=== PATIENT | male | born 1955 | race Caucasian/White ===

== ENCOUNTER 2016-09-23 15:52 | Observation (INO) | payer BC, MEDICAID ==
--- OUTSIDE RECORDS SUMMARY | 2016-09-23 17:51 | XMS REPORT | Continuity of Care Document ---
:1955 Author Organization [facility] ([facility]) Address [address] [place] [address] Phone [phone] Care Team Providers Name Role Phone Urbano Monsalve Primary Care Provider [phone] Source Comments This disclosure is being made pursuant to the Care Everywhere program, applicable federal and state laws, and may not contain all informaitonavailable regarding this patient.[facility] ([facility]) Active Allergies and Adverse Reactions Allergen Noted Date Severity Reactions Comments Theophylline OTHER "blacked out" Current Medications Prescription Sig. Disp. Refills Start Date End Date Status traZODone 100 mg tablet Take 100 mg by mouth Active at bedtime. Indications: Sleep amLODIPine 5 mg tablet Take 5 mg by mouth Active daily. Indications: HYPERTENSION omeprazole 20 mg Take 20 mg by mouth Active extended release 2 times daily. Take capsule one capsule twice daily before meals aspirin 81 mg chewable Take 1 Tab by mouth 30 Tab 3 12/19/2012 Active tablet daily. Indications: chads 1 cyclobenzaprine 10 mg Take 10 mg by mouth Active tablet at bedtime. ALPRAZolam 1 mg tablet Take 1 mg by mouth Active at bedtime as needed. DULoxetine 30 mg XR Take 30 mg by mouth Active capsule 2 times daily. nortriptyline 10 mg Take 20 mg by mouth Active capsule at bedtime. 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 Resolved Problems Problem Noted Date Resolved Date Atrial fibrillation with RVR 12/16/2012 12/19/2012 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 12/19/2012 Paroxysmal atrial fibrillation 12/15/2012 12/19/2012 Social History Tobacco Use Types Packs/Day Years Used Date Former Smoker Last Filed Vital Signs Vital Sign Reading Time Taken Blood Pressure 114/80 12/30/2015 1:01 PM CDT Pulse 84 12/30/2015 1:01 PM CDT Temperature 36.8 C (98.2 F) 12/19/2012 7:33 AM CDT Respiratory Rate 16 12/19/2012 7:33 AM CDT Height 1.803 m (5' 10.98") 12/30/2015 1:01 PM CDT Weight 95.255 kg (210 lb) 12/30/2015 1:01 PM CDT Body Mass Index 29.3 12/30/2015 1:01 PM CDT Oxygen Saturation 96% 12/19/2012 7:33 AM CDT Plan of Care Health Maintenance Due Date Last Done Comments Hepatitis B Vaccine (1 of 3 1955 - Primary Series) Tdap Vaccine 1965 Td Vaccine 1972 Prostate Cancer Screening 2004 Colonoscopy 07/04/2013 07/04/2003 Zoster Vaccine 2014 Influenza Vaccine: Seasonal 01/11/2016 (#1) Lipid Disorder Screening 12/16/2017 12/16/2012, Additional history exists 09/24/2004, 02/13/2004 HCV Screening Completed 12/16/2012 Results from Last 3 Months Not on file
[2016-09-23 18:03] LABS: Hematocrit 51.2 % (42.0-52.0); Hemoglobin 16.9 gm/dL (13.5-18.0); Mean Cell Volume 89.7 fl (78-100); Mean Corpuscular Hemoglobin 29.6 pg (27-31); Mean Platelet Volume 9.5 fl (6.0-9.5); Neutrophil # 3.5 K/mm3 (1.3-6.0); Neutrophil % 64.6 % (42-75.0); Platelet Count 266 K/mm3 (150-450); Red Blood Count 5.71 M/mm3 (4.7-6.0); Red Cell Distribution Width 12.9 % (11.5-14.0); White Blood Count 5.5 K/mm3 (4.0-10.5)
[2016-09-23 18:17] LABS: Albumin * 3.9 gm/dl (3.4-5.0); Anion Gap 14.4 mmol/L (6.8-13.8); BUN/Creatinine Ratio 9.5 (9.0-21.6); Bilirubin, Total 0.4 mg/dL (0.0-1.1); Ca. Corrected For Albumin 8.2 mg/dL (8.4-10.2); Calcium * 8.4 mg/dL (7.9-10.9); Carbon Dioxide 26.6 mmol/L (24-32.6); Total Protein 7.5 gm/dL (6.2-8.2)
[2016-09-23] MEDS ORDERED: INSULIN REGULAR, HUMAN 100 UNITS/ML VIAL IV ONE (18:46)
[2016-09-23] MEDS ORDERED: NORMAL SALINE 1,000 ML IV ONE (18:46)
[2016-09-23 18:54] LABS: Urine Appearance Clear; Urine Bacteria None Seen; Urine Bilirubin Negative (NEGATIVE); Urine Blood Negative /ul (NEGATIVE); Urine Color Yellow; Urine Ketone Negative (NEGATIVE); Urine Nitrite Negative (NEGATIVE); Urine Protein Negative (NEGATIVE); Urine RBC None Seen /hpf (0-5); Urine Specific Gravity <=1.005 SP.GR. (1.005-1.030); Urine Urobilinogen Normal (NORMAL); Urine WBC None Seen /hpf (0-5); Urine pH 5.5 pH (5.0-7.0)
[2016-09-23] MEDS ORDERED: INSULIN REGULAR, HUMAN 100 UNITS/ML VIAL ONE (18:54)
--- NOTE | 2016-09-23 20:40 | ERNOTE ---
Dizziness ER Record Date of Service: 09/23/16 Presenting Symptoms: dizziness Time Seen by Provider: 09/23/16 17:37 Source: patient, RN notes reviewed, old records Exam Limitations: no limitations Immunizations: IMMUNIZATION HX Immunizations Up to Date Yes History of Influenza Vaccine Yes Hx Pneumococcal Vaccination No Allergies/Adverse Reactions: Allergies Allergy/AdvReac Type Severity Reaction Status Date / Time theophylline anhydrous Allergy Severe Verified 12/17/14 05:55 [From Daniel-Dur] atorvastatin calcium Allergy Verified 01/06/16 10:53 [From Lipitor] Home Medications: HOME MEDICATIONS Acetaminophen [Tylenol] 650 mg PO Q4HWA 01/07/13 [Last Taken Unknown] Omeprazole 20 mg PO BID 01/07/13 [Last Taken Unknown] Trazodone HCl 100 mg PO HS 01/07/13 [Last Taken Unknown] amLODIPine BESYLATE [Norvasc (Amlodipine)] 5 mg PO DAILY 01/07/13 [Last Taken Unknown] Amitriptyline HCl 07/11/14 [Last Taken Unknown] Naproxen [Naprosyn] 500 mg PO BID #20 tablet 12/17/14 [Last Taken Unknown] - History of Present Illness Narrative: 61 y/o male to the ED from home by private vehicle for dizziness that began approximately 6 months ago. This has been gradually worsening to the point where he felt he should be evaluated today. The dizziness is intermittent and seems to be brought on by exertion. He reports that he lost his job last fall and his insurance coverage. He stopped seeing his PCP due to this, but reports that he has been able to continue his routine medications. Timing and Duration: gradual onset, intermittent Noted on awakening:: No Associated Symptoms: Present: headache, sweating, light headedness. Absent: hearing loss, ringing/roaring in ear, ear pain, nausea, vomiting, weakness, numbness, sense of confusion Sense of movement: Present: vague Decreased ability to stand/walk:: Present: walks w/o assistance Usually:: Present: walks w/o assistance Prior Treament: Denies: recently seen Review of Systems - Review of Systems Constitutional: Present: fatigue, malaise. Absent: recent illness, fever, chills, weight loss EYE: Present: no symptoms reported ENT: Present: no symptoms reported Respiratory: Absent: shortness of breath, cough, wheezing Cardiology: Absent: chest pain, palpitations, syncope, edema Gastrointestinal/Abdominal: Absent: nausea, vomiting, abdominal pain, eating less, drinking less Genitourinary: Present: frequency. Absent: dysuria, hematuria Musculoskeletal: Absent: back pain, neck pain Skin: Absent: rash, lesions Neurological: Present: headache, dizziness/light-headedness. Absent: weakness, numbness Endocrine: Present: increased thirst, increased urine. 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 Patient History - Cancer: No Hx of Cancer Patient History - Surgical Procedures: Hernia Repair, Orthopedic Patient History - Other: None - Social History Living Situations: other Abuse History: No History of abuse Psych History: No pertinent hx Smoking Status: Former smoker Alcohol Use: occasionally Drug Use: none - Immunizations Immunizations Up to Date: Yes Hx Pneumococcal Vaccination: No History of Influenza Vaccine: Yes Physical Exam - Physical Exam General Appearance: Present: wd/wn, alert, other - appears to not feel well Eye Exam: Normal inspection: bilateral, PERRL: bilateral Ears, Nose, Throat: Present: normal ENT inspection Neck: Present: normal inspection, nontender, supple, full range of motion Respiratory: Present: no respiratory distress, normal breath sounds, no accessory muscle use, lungs clear Cardiovascular/Chest: Present: regular rate, rhythm, no murmur, normal peripheral pulses Extremity Exam: Present: normal inspection, no edema Neurological Exam: Present: alert, oriented, no motor/sensory deficits, other - flat affect, depressed appearing. Absent: normal mood/affect Skin Exam: Present: normal color, warm/dry ED Progress - Results and Orders Patient's Lab Results:: I have reviewed the patient's lab results. - Vital Signs Patient's Vital Signs:: I have reviewed the patient's vital signs. Vital Signs: Vital Signs 09/23/16 09/23/16 09/23/16 16:07 18:10 18:28 Temperature 36.7 C Pulse Rate 92 89 100 Respiratory 16 Rate Blood Pressure 147/102 O2 Sat by Pulse 97 Oximetry 09/23/16 09/23/16 18:49 19:44 Temperature Pulse Rate 88 82 Respiratory 14 14 Rate Blood Pressure 157/107 162/99 O2 Sat by Pulse 92 95 Oximetry - EKG EKG: NSR, RBBB EKG read: Reviewed by me - Progress/Reassessment Chief Complaint: Dizziness Progress:: Unchanged Progress Note-Subjective: 09/23/16 20:24 Blood glucose 801 on CMP. Rechecked by nurse - 494. Regular insulin 10 units given IV push - blood glucose 450 1 hour later. Currently 411. Negative serum ketones. Attempted to contact hospitalist for admission - informed by engineering secretary that she says she will call me back. 09/23/16 20:55 Again contacted hospitalist. Discussed admission. She is reviewing the patient' s chart. 09/23/16 21:19 Hospitalist agrees to observation admit for new onset diabetes Departure Clinical Impression: Diabetes mellitus, new onset, Dizziness - Departure Disposition: [facility] Condition: Stable
--- OUTSIDE RECORDS SUMMARY | 2016-09-23 21:28 | XMS REPORT | Continuity of Care Document ---
:1955 Author Organization [facility] ([facility]) Address [address] [place] [address] Phone [phone] Care Team Providers Name Role Phone Urbano Monsalve Primary Care Provider [phone] Source Comments This disclosure is being made pursuant to the Care Everywhere program, applicable federal and state laws, and may not contain all informaitonavailable regarding this patient.[facility] ([facility]) Active Allergies and Adverse Reactions Allergen Noted [...] Date Atrial fibrillation with RVR 12/16/2012 12/19/2012 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
[2016-09-23] MEDS: NORMAL SALINE 1,000 ML IV PRN (23:00)
--- NOTE | 2016-09-23 23:03 | HP ---
Chief Complaint - Chief Complaint Date of Service: 09/23/16 Time of Service: 22:53 Chief Complaint: Dizziness, polyuria, polydipsia History of Present Illness: 61 years old male adm to the hospital with reports of headache, dizziness, polydipsia and polyuria x 6 months. pt stated he lost his job and was without insurance so he haven't been seeing his PCP on a regular basis. Today he was feeling fatigue, dizziness and headache which felt the worst since he started having s/s. He was concern and came to the ER. In ER blood glucose 801, 1L normal saline bolus and 10 unit Humulin R given , serum and urine negative for ketones, K+ 5.0, NA= 128. Bun/ Cre 14/.48 is at baseline, last adm 09/25--->.. Continue with IVF hydration. Plan of care discussed with pt he verbalized understanding and agree. - Patient's Past Medical History Patient History - Medical: Arthritis, Depression, GERD, Other - RLS Patient History - Cardiac/Respiratory: Arrhythmias - cardio ablation 2012 , truong parkinson white syndrome, Hypertension, Hyperlipidemia, Other Patient History - Cancer: No Hx of Cancer Patient History - Surgical Procedures: Hernia Repair, Orthopedic - Bilateral rotator cuff repair x2 Patient History - Other: None - Family History Mother Family History - Medical: Family History - Cardiac/Respiratory: Deep Vein Thrombosis Family History - Cancer: Cervical Father Family History - Medical: Family History - Cardiac/Respiratory: Deep Vein Thrombosis - Social History Living Situations: other Abuse History: No History of abuse Psych History: No pertinent hx Smoking Status: Former smoker Have you smoked in the past 12 months: No Alcohol Use: occasionally Drug Use: none - Immunizations Immunizations Up to Date: Yes Hx Pneumococcal Vaccination: No History of Influenza Vaccine: Yes Review Of Systems (GEN) - Review of Systems Generalized/Overall Review: Present: No Symptoms Reported EENTM: Present: No Symptoms Reported Respiratory: Present: No Symptoms Reported Cardiac: Present: No Symptoms Reported Abdominal: Present: No Symptoms Reported Genitourinary: Present: No Symptoms Reported Musculoskeletal: Present: No Symptoms Reported Neurological: Present: No Symptoms Reported Skin: Present: No Symptoms Reported Endocrine: Present: Increased Hunger, Increased Thirst Immunizations: IMMUNIZATION HX Immunizations Up to Date Yes History of Influenza Vaccine Yes Hx Pneumococcal Vaccination No Allergies/Adverse Reactions: Allergies Allergy/AdvReac Type Severity Reaction Status Date / Time theophylline anhydrous Allergy Severe Verified 12/17/14 05:55 [From Daniel-Dur] atorvastatin calcium Allergy Verified 01/06/16 10:53 [From Lipitor] Home Medications: HOME MEDICATIONS Omeprazole 20 mg PO BID 01/07/13 [Last Taken Unknown] Trazodone HCl 100 mg PO HS 01/07/13 [Last Taken Unknown] amLODIPine BESYLATE [Norvasc (Amlodipine)] 5 mg PO DAILY 01/07/13 [Last Taken Unknown] ALPRAZolam [Xanax] 1 mg PO HS 09/23/16 [Last Taken Unknown] Calcium Carb/Mag Ox/Zinc Sulf [Pbkknsu-Zpwkqqygf-Alxg Tablet] 1 each PO DAILY [Last Taken Unknown] Cholecalciferol (Vitamin D3) [Vitamin D3] 1,000 unit PO DAILY 09/23/16 [Last Taken Unknown] Cyclobenzaprine HCl 10 mg PO HS 09/23/16 [Last Taken Unknown] DULoxetine HCL [Cymbalta] 30 mg PO BID 09/23/16 [Last Taken Unknown] Exam - Exam Vital Signs: Vital Signs - Last Taken Temp 36.4 C L 09/23/16 21:43 Pulse 88 09/23/16 21:43 Resp 18 09/23/16 21:43 BP 157/102 09/23/16 21:43 Pulse Ox 98 09/23/16 21:43 Constitutional: Present: Alert, Oriented x3, Cooperative, Well developed, No distress, Young, Looks Older than stated age ENT Exam: Present: moist mucous membranes Eye Exam: bilateral eye: normal inspection Neck: Present: non-tender, full range of motion Back Exam: Present: normal inspection Respiratory: Present: chest non-tender, lungs clear, normal breath sounds, no respiratory distress, no accessory muscle use Cardiovascular/Chest: Present: normal peripheral pulses, regular rate, rhythm, no chest tenderness, no edema Peripheral Pulses: dorsalis-pedis (R): 2+, dorsalis-pedis (L): 2+ Abdomen: Present: Normal bowel sounds, soft, nontender, nondistended, no rebound tenderness Extremity: Present: normal range of motion Skin Exam: Present: warm/dry Lymphatic: Present: no adenopathy Neurologic: Present: oriented x 3 Appearance: Present: appropriate appearance Eye contact: Present: cooperative, good eye contact Thoughts: Present: normal thought pattern Diagnostic Studies: Laboratory Results WBC 5.5 K/mm3 (4.0-10.5) 09/23/16 17:55 RBC 5.71 M/mm3 (4.7-6.0) 09/23/16 17:55 Hgb 16.9 gm/dL (13.5-18.0) 09/23/16 17:55 Hct 51.2 % (42.0-52.0) 09/23/16 17:55 MCV 89.7 fl (78-100) 09/23/16 17:55 MCH 29.6 pg (27-31) 09/23/16 17:55 MCHC 33.0 g/dl (32-36) 09/23/16 17:55 RDW 12.9 % (11.5-14.0) 09/23/16 17:55 Plt Count 266 K/mm3 (150-450) 09/23/16 17:55 MPV 9.5 fl (6.0-9.5) 09/23/16 17:55 Immature Gran % (Auto) 0.70 % (0.001-0.429) H 09/23/16 17:55 Immature Gran # (Auto) 0.04 K/mm3 (0.000-0.0310) H 09/23/16 17:55 Neutrophils % 64.6 % (42-75.0) 09/23/16 17:55 Lymphocytes % 26.1 % (20-51) 09/23/16 17:55 Monocytes % 5.3 % (0.0-9) 09/23/16 17:55 Eosinophils % 2.4 % (0.0-3.0) 09/23/16 17:55 Basophils % 0.9 % (0.0-1.0) 09/23/16 17:55 Nucleated RBC % 0.0 k/mm3 (0-1) 09/23/16 17:55 Neutrophils # 3.5 K/mm3 (1.3-6.0) 09/23/16 17:55 Lymphocytes # 1.4 k/mm3 (1.5-3.5) L 09/23/16 17:55 Monocytes # 0.3 k/mm3 (0.0-1.0) 09/23/16 17:55 Eosinophils # 0.1 k/mm3 (0.0-0.7) 09/23/16 17:55 Absolute Basophils 0.1 k/mm3 (0.0-0.1) 09/23/16 17:55 Sodium 128 mmol/L (132-142) L 09/23/16 17:55 Plasma Sodium 139 mmol/L (130-142) 09/23/16 17:55 Potassium 5.0 mmol/L (3.4-4.6) H 09/23/16 17:55 Chloride 92 mmol/L (97-106) L 09/23/16 17:55 Carbon Dioxide 26.6 mmol/L (24-32.6) 09/23/16 17:55 Anion Gap 14.4 mmol/L (6.8-13.8) H 09/23/16 17:55 BUN 14 mg/dL (6-23) 09/23/16 17:55 Creatinine 1.48 mg/dL (0.4-1.4) H D 09/23/16 17:55 Est GFR (Non-Af Amer) 51 mL/min (60-130) L D 09/23/16 17:55 BUN/Creatinine Ratio 9.5 (9.0-21.6) 09/23/16 17:55 Random Glucose 801 mg/dL (70-110) H* 09/23/16 17:55 Calcium 8.4 mg/dL (7.9-10.9) 09/23/16 17:55 Calcium Adj for Albumin 8.2 mg/dL (8.4-10.2) L 09/23/16 17:55 Total Bilirubin 0.4 mg/dL (0.0-1.1) 09/23/16 17:55 AST 14 U/L (0-48) 09/23/16 17:55 ALT 36 U/L (19-67) 09/23/16 17:55 Alkaline Phosphatase 138 U/L (50-170) 09/23/16 17:55 Total Protein 7.5 gm/dL (6.2-8.2) 09/23/16 17:55 Albumin 3.9 gm/dl (3.4-5.0) 09/23/16 17:55 Urine Color Yellow 09/23/16 18:45 Urine Appearance Clear 09/23/16 18:45 Urine pH 5.5 pH (5.0-7.0) 09/23/16 18:45 Ur Specific Foley <=1.005 SP.GR. (1.005-1.030) 09/23/16 18:45 Urine Protein Negative mg/dL (NEGATIVE) 09/23/16 18:45 Urine Glucose (UA) >=1000 mg/dL (NEGATIVE) H 09/23/16 18:45 Urine Ketones Negative mg/dL (NEGATIVE) 09/23/16 18:45 Urine Blood Negative /ul (NEGATIVE) 09/23/16 18:45 Urine Nitrate Negative (NEGATIVE) 09/23/16 18:45 Urine Bilirubin Negative mg/dl (NEGATIVE) 09/23/16 18:45 Urine Urobilinogen Normal EU/dl (NORMAL) 09/23/16 18:45 Ur Leukocyte Esterase Negative /ul (NEGATIVE) 09/23/16 18:45 Urine RBC None seen /hpf (0-5) 09/23/16 18:45 Urine WBC None seen /hpf (0-5) 09/23/16 18:45 Ur Epithelial Cells None seen /hpf (0-5) 09/23/16 18:45 Urine Bacteria None seen (NONE) 09/23/16 18:45 Urine Culture Comments No culture indicated 09/23/16 18:45 Serum Ketones Negative (NEGATIVE) 09/23/16 17:55 Assessment/Plan - Narrative Narrative: New onset diabetes- pt reports of polydipsia, polyuria and polyphagia In ER Blood glucose 801mg/dl K+ 5.0, Na+ 128 1L normal saline bolus and 10 unit Humulin R given in ER -----> repeated BG 411mg/dl Accu-check AC+HS and moderate dose SSI Consistent carb diet Continue with IVF hydration Urine and serum negative for ketones Urine glucose >1000 Diabetic education and life style modification Mag, phos,Lipid panel, Urine microalbumine and A1C pending Anticipate D5W 0.45NS when blood glucose goal 200-250 Uncontrolled hypertension On adm BP 157/102 If pt missed todays medication give dose and monitor vital signs Resume home dose of medications Hydralazine 10 mg Q8hr for SBP>160 or DBP >80 Give additional dose Norvasc 5mg x1 now and start Lisinopril 5mg oral daily Anticipate D5W 0.45NS when blood glucose goal 200-250 and if pt unable to tolerate oral Code status: Full GI ppx: VTE ppx: Anticipate discharge home 1-3 days and follow up with PCP Time 35 minutes - Assessment/Plan (1) Diabetes mellitus, new onset Problem: Acute (2) Hypertension Problem: Chronic Qualifiers: Hypertension type: essential hypertension Qualified Code(s): I10 - Essential (primary) hypertension (3) Dizziness Problem: Acute
[2016-09-23 23:10] LABS: Urine Creatinine 15 mg/dL (60-200)
[2016-09-23 23:13] LABS: Microalbumin/Creatinine Ratio 7 mcg/mgCR (0-30)
[2016-09-23 23:27] LABS: Anion Gap 12.8 mmol/L (6.8-13.8); BUN/Creatinine Ratio 12.4 (9.0-21.6); Calcium * 8.5 mg/dL (7.9-10.9); Carbon Dioxide 27.2 mmol/L (24-32.6); Estimated Creat Clear 72.2; Phosphorus 3.6 mg/dL (2.2-4.2)
[2016-09-23] MEDS ORDERED: amLODIPine BESYLATE 5 MG TABLET PO ONE (23:55)
[2016-09-23] MEDS ORDERED: hydrALAZINE HCL 20 MG/ML VIAL IV PRN (23:56)
[2016-09-24] MEDS ORDERED: LISINOPRIL 5 MG TABLET PO SCH ×2 (00:30→09:00)
[2016-09-24 05:15] LABS: Hemoglobin A1C 9.5 % (4.00-6.0)
[2016-09-24 05:45] LABS: Albumin * 3.2 gm/dl (3.4-5.0); Anion Gap 12.4 mmol/L (6.8-13.8); BUN/Creatinine Ratio 14.9 (9.0-21.6); Bilirubin, Total 0.7 mg/dL (0.0-1.1); Ca. Corrected For Albumin 8.2 mg/dL (8.4-10.2); Calcium * 7.9 mg/dL (7.9-10.9); Carbon Dioxide 26.4 mmol/L (24-32.6); Chol/HDL Risk Ratio 7.2 mg/dL (3.3-5.0); Potassium 3.8 mmol/L (3.4-4.6); Total Protein 6.3 gm/dL (6.2-8.2)
--- NOTE | 2016-09-24 06:36 | PN ---
Subjective - Date and Time Seen Date: 09/24/16 Time: 06:33 Subjective Narrative: Patient seen today in bed BP improved overnight he denies headache, dizziness, nausea or vomiting. Pt stated he will seek out a PCP and anticipate discharge home later today. Objective - Review of Systems Generalized/Overall Review: Reports: No Symptoms Reported EENTM: Reports: No Symptoms Reported Respiratory: Reports: No Symptoms Reported Cardiac: Reports: No Symptoms Reported Abdominal: Reports: No Symptoms Reported Genitourinary Symptoms: Reports: No Symptoms Reported Musculoskeletal Complaints: Reports: No Symptoms Reported Neurological: Reports: No Symptoms Reported Skin: Reports: No Symptoms Reported - Vitals Vitals: Last Vital Signs Temp 36.2 C L 09/24/16 02:29 Pulse 81 09/24/16 02:29 Resp 18 09/24/16 02:29 BP 140/80 09/24/16 02:29 Pulse Ox 93 09/24/16 02:29 - Abnormal Lab Findings Abnormal Lab Findings: Abnormal Lab Results 09/23/16 09/24/16 09/24/16 Range/Units 23:11 04:58 04:58 Random Glucose 471 H D 297 H D (70-110) mg/dL Hemoglobin A1c 9.5 H (4.00-6.0) % Calcium Adj for Albumin 8.2 L (8.4-10.2) mg/dL Albumin 3.2 L (3.4-5.0) gm/dl Triglycerides 213 H (30-200) mg/dL Cholesterol 204 H (0-200) mg/dL LDL Cholesterol 133 H (70-130) mg/dL VLDL Cholesterol 43 H (5-40) mg/dL HDL Cholesterol 28 L (40-60) mg/dL Cholesterol/HDL Ratio 7.2 H (3.3-5.0) mg/dL - Exam Constitutional: Present: Alert, Oriented x3, Cooperative, Well developed, No distress ENT Exam: Present: moist mucous membranes Neck: Present: full range of motion Breasts: Present: Exam deferred Respiratory: Present: chest non-tender, lungs clear, normal breath sounds, no respiratory distress, no accessory muscle use Cardiovascular/Chest: Present: normal peripheral pulses, regular rate, rhythm, no chest tenderness, no edema, no gallop Abdomen: Present: Normal bowel sounds, soft, nontender, nondistended, no rebound tenderness /Rectal: Present: Exam deferred Extremity: Present: normal range of motion, non-tender, normal inspection, no pedal edema, no calf tenderness Skin Exam: Present: normal color, warm/dry, no cyanosis Neurologic: Present: oriented x 3 Appearance: Present: appropriate appearance Eye contact: Present: cooperative Thoughts: Present: normal thought pattern Assessment/Plan Plan Narrative: Hypertensive- gradually improved Overnight BP elevated additional dose Norvasc given and improved Continue with home dose of medications Monitor vital signs Q shift and PRN New onset diabetes- pt reports of polydipsia, polyuria and polyphagia- improving In ER Blood glucose 801mg/dl K+ 5.0, Na+ 128- improved with hydration K+ 3.8, Na+ 137 10 unit Humulin R given in ER -----> repeated BG 411mg/dl----> 230mg/dl Accu-check AC+HS and moderate dose SSI Consistent carb diet Continue with IVF hydration Urine and serum negative for ketones Urine glucose >1000 Diabetic education and life style modification Lipid panel, mag, phos- noted Urine microalbumine noted A1C 9.5, anticipate discharge home with metformin Renal insufficiency -likely due to decreased oral intake- improved On adm Bun/Cre---> 14/1.48---->14/0.94 Continue with gently hydration and encourage oral intake. Code status: Full GI ppx: VTE ppx: Anticipate discharge home 0-1 day and follow up with PCP Time 20 minutes - Problems/Diagnosis (1) Diabetes mellitus, new onset Problem: Acute (2) Hypertension Problem: Chronic Qualifiers: Hypertension type: essential hypertension Qualified Code(s): I10 - Essential (primary) hypertension (3) Dizziness Problem: Resolved
[2016-09-24 06:52] VITALS: BP 148/92
[2016-09-24] MEDS ORDERED: PANTOPRAZOLE SODIUM 20 MG TABLET.DR PO SCH (07:00)
[2016-09-24] MEDS: NORMAL SALINE 1,000 ML IV PRN (07:07)
[2016-09-24] MEDS: INSULIN LISPRO 100 UNITS/ML VIAL SC SCH ×2 (07:08→11:52)
[2016-09-24] MEDS ORDERED: CALCIUM CARBONATE PO SCH (09:00)
[2016-09-24] MEDS ORDERED: MULTIVITAMINS 1 CAP CAPSULE PO SCH (09:00)
[2016-09-24] MEDS ORDERED: CHOLECALCIFEROL 1,000 UNIT CAPSULE PO SCH (09:00)
[2016-09-24] MEDS ORDERED: amLODIPine BESYLATE 5 MG TABLET PO SCH (09:00)
[2016-09-24] MEDS ORDERED: [UNRECOGNIZED DRUG - OTHER] PO SCH (09:00)
[2016-09-24] MEDS ORDERED: MAGNESIUM OXIDE PO SCH (09:00)
[2016-09-24] MEDS ORDERED: ZINC SULFATE PO SCH (09:00)
[2016-09-24] MEDS ORDERED: DULoxetine HCL 30 MG CAPSULE.SA PO SCH (09:00)
--- NOTE | 2016-09-24 10:38 | DS ---
(1) Diabetes mellitus, new onset Problem: Acute (2) Hyperlipidemia Problem: Acute (3) Benign essential hypertension Problem: Acute Description of Stay: ADMISSION DATE: 09.23.2016 DISCHARGE DATE: 09.24.2016 ADMISSION HPI by ANA PAULA Weber: 61 years old male adm to the hospital with reports of headache, dizziness, polydipsia and polyuria x 6 months. pt stated he lost his job and was without insurance so he haven't been seeing his PCP on a regular basis. Today he was feeling fatigue, dizziness and headache which felt the worst since he started having s/s. He was concern and came to the ER. In ER blood glucose 801, 1L normal saline bolus and 10 unit Humulin R given , serum and urine negative for ketones, K+ 5.0, NA= 128. Bun/ Cre 14.48 is at baseline, last adm 09/25--->06.15. Continue with IVF hydration. Plan of care discussed with pt he verbalized understanding and agree. PROBLEM BASED HOSPITAL COURSE: Newly Diagnosed Type 2 Diabetes Mellitus, Uncontrolled -A1c 9.5% -Consistent carb diet -Diabetic education and life style modification -Patient instructed to check his BG at home every morning fasting and PRN. He was instructed to keep a log of his BG and bring this with him to his follow- up visit. -Start metformin and glimiperide as below -Patient given information and specifics regarding picking up diabetic supplies including BG meter, lancets, strips Uncontrolled benign essential hypertension -Discontinue home amlodipine -Start Lisinopril as below Hyperlipidemia -Start lovastatin as below (lovastatin is on the $4 list) FOLLOW-UP APPOINTMENTS: -Patient does not have a PCP. I instructed the patient that he could follow-up with me in clinic and we will make an appointment for him on Monday (09.25.2016 ) to see me within the next 1-2 weeks NEW OR CHANGED MEDICATIONS: Aspirin 81mg PO daily Glimepiride 8mg PO daily with AM meal Metformin ER 1000mg PO BID with AM and PM meal Lovastatin 40mg PO qHS Lisinopril 20mg PO daily DISCONTINUED MEDICATIONS: Amlodipine 5mg PO daily Procedures Performed: none Results and Findings: Laboratory Tests 09/24/16 09/24/16 04:58 04:58 Hemoglobin A1c 9.5 H Triglycerides 213 H Cholesterol 204 H LDL Cholesterol 133 H VLDL Cholesterol 43 H HDL Cholesterol 28 L Discharge Disposition: Home self care Disposition: Home self-care Condition: Stable Discharge Activity: Activity as tolerated Discharge Diet: Consistent carbs, Other - Healthy diabetic diet Problem Oriented Discharge Instructions to Patient/Family: Blood Glucose Monitoring, Adult, Diabetes Mellitus and Food Additional Patient Instructions (free text): [facility] courtesy visit at discharge. Please fax orders and call report. Follow-up with Dr. Mays within 1-2 weeks. [facility] will call you on Monday with follow up appointment. Take Glimepiride and Metformin with meals. You can buy a glucometer, lancets and test strips at [facility] when you greens picker your prescriptions. The generic brand is ReliOn. Check your blood sugar every morning before you eat anything and as needed if you have symptoms of high/low blood sugars. Keep a log of your blood sugars and take to your follow up appointment. Prescriptions (Any new or edited meds): Aspirin [Aspirin Enteric Coated] 81 mg PO DAILY #30 tablet. Glimepiride 8 mg PO DAILY #60 tablet Lisinopril [Prinivil] 20 mg PO DAILY #30 tablet Lovastatin 40 mg PO HS #30 tablet Multivitamins [Multivitamin Cassie] 1 cap PO DAILY #30 capsule metFORMIN HCL [Metformin HCl ER] 1,000 mg PO BIDWM #120 tab.er.24h Complete Home Medications List: Complete Home Medication List: Omeprazole 20 mg PO BID 01/07/13 Trazodone HCl 100 mg PO HS 01/07/13 ALPRAZolam [Xanax] 1 mg PO HS 09/23/16 Calcium Carb/Mag Ox/Zinc Sulf [Qffkyjq-Uijdaqmcv-Smzw Tablet] 1 each PO DAILY Cholecalciferol (Vitamin D3) [Vitamin D3] 1,000 unit PO DAILY 09/23/16 Cyclobenzaprine HCl 10 mg PO HS 09/23/16 DULoxetine HCL [Cymbalta] 30 mg PO BID 09/23/16 Aspirin [Aspirin Enteric Coated] 81 mg PO DAILY #30 tablet. 09/24/16 Glimepiride 8 mg PO DAILY #60 tablet 09/24/16 Lisinopril [Prinivil] 20 mg PO DAILY #30 tablet 09/24/16 Lovastatin 40 mg PO HS #30 tablet 09/24/16 Multivitamins [Multivitamin Cassie] 1 cap PO DAILY #30 capsule 09/24/16 metFORMIN HCL [Metformin HCl ER] 1,000 mg PO BIDWM #120 tab.er.24h 09/24/16
[2016-09-24] MEDS ORDERED: traZODone HCL 50 MG TABLET PO SCH (21:00)
[2016-09-24] MEDS ORDERED: CYCLOBENZAPRINE HCL 10 MG TABLET PO SCH (21:00)
[2016-09-24] MEDS ORDERED: ALPRAZolam 1 MG TABLET PO SCH (21:00)
== END 2016-09-24 13:40 | disposition home or self-care (01) ==
LOC: ER 15:52 → MS 21:23
PROVIDERS: ADMIT Internal Medicine; ATTEND Internal Medicine
DX: E11.65 Type 2 diabetes mellitus with hyperglycemia (principal); I10 Essential (primary) hypertension; E78.5 Hyperlipidemia, unspecified; R42 Dizziness and giddiness; Z87.891 Personal history of nicotine dependence; K21.9 Gastro-esophageal reflux disease without esophagitis; M47.9 Spondylosis, unspecified
CPT/HCPCS: 36415; 80048; 80053; 80061; 81001; 82009; 82043; 82570; 83036; 83735; 84100; 85025; 93005; 96374; 99284; G0378

== ENCOUNTER 2019-05-02 09:40 | Observation (INO) ==
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
[2019-05-02] MEDS ORDERED: ACETAMINOPHEN 325 MG TABLET PO PRN (14:19)
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
[2019-05-02 17:33] VITALS: BP 145/82
[2019-05-02] MEDS ORDERED: traZODone HCL 50 MG TABLET PO SCH (21:00)
[2019-05-02] MEDS ORDERED: PANTOPRAZOLE SODIUM 20 MG TABLET.DR PO SCH (21:00)
[2019-05-02] MEDS ORDERED: GABAPENTIN 300 MG CAPSULE PO SCH (21:00)
[2019-05-02] MEDS ORDERED: CHOLESTYRAMINE/ASPARTAME 4 GM PACKET PO SCH (21:00)
[2019-05-03] MEDS ORDERED: EZETIMIBE 10 MG TABLET PO SCH (09:00)
[2019-05-03] MEDS ORDERED: DULoxetine HCL 30 MG CAPSULE.SA PO SCH (09:00)
[2019-05-03] MEDS ORDERED: LISINOPRIL 20 MG TABLET PO SCH (09:00)
== END 2019-05-02 17:30 | disposition home or self-care (01) ==
LOC: ER 09:40 → MS 09:40
PROVIDERS: ADMIT Family Medicine; ATTEND Family Medicine
CPT/HCPCS: 70450; 70553; 72125; 72141; 99284; A9576